=== PATIENT | female | born 1955 | race Caucasian/White ===

== ENCOUNTER → 2022-11-30 11:07 | Outpatient (CLI) | payer MEDICARE, SELFPAY ==
--- NOTE | ~2022-11-30 | MR_ITS ---
EXAMINATION: MR lower leg RT wo con DATE: 11/30/2022 12:11 INDICATION: Right lower leg pain. TECHNIQUE: Magnetic resonance imaging (MRI) of the right lower leg was performed without intravenous contrast. Sequences included axial, sagittal and coronal T1-weighted FSE and fluid sensitive FSE STIR . The contralateral left lower leg is included on the coronal images. COMPARISON: None. FINDINGS: Evaluation the joint space at the knees and ankles is limited by their position at the margins of the field of imaging. At least moderate, potentially severe osteoarthritis with scattered cortical irreg ularity and subarticular edema-like signal changes at the medial and lateral compartments of both kne es. Additional osteoarthritis with subarticular edema and cystlike changes at the right proximal tibi ofibular joint. Otherwise normal marrow signal. No reactive edema, fracture or pathologic marrow repl acing process. No periostitis. Small amount of fluid at the right pes anserinus bursa consistent with bursitis. No other abnormal fluid collections identified. Thickening of the proximal right tibialis posterior tendon near its insertion along the proximal tibiofibular syndesmosis suggesting scarring r elated to chronic partial tear. There is nonspecific mild increased fluid signal in the right gastroc nemius muscle and in the musculature of the anterior and lateral compartments. There is asymmetric mi ld fatty atrophy in the same locations as of the increased muscle signal at the contralateral left ca lf. IMPRESSION: 1. Right pes anserinus bursitis. 2. Nonspecific mild increased muscular signal at the right gastrocnemius muscle and in the musculatur e of the anterior and lateral compartments. There is a wide differential which includes denervation c hange, numerous inflammatory myopathies including myositis related to connective tissue diseases, rha bdomyolysis and trauma. Relatively symmetric distribution of some fatty atrophy in the contralateral left lower leg suggests a similar chronic more advanced etiology. 3. Thickening of the proximal tendon of the tibialis posterior suggesting scarring related to chronic partial tear. Reviewed, dictated and finalized at location B. IMPRESSION: 1. Right pes anserinus bursitis. 2. Nonspecific mild increased muscular signal at the right gastrocnemius muscle and in the musculature of the anterior and lateral compartments. There is a wi de differential which includes denervation change, numerous inflammatory myopat hies including myositis related to connective tissue diseases, rhabdomyolysis a nd trauma. Relatively symmetric distribution of some fatty atrophy in the contr alateral left lower leg suggests a similar chronic more advanced etiology. 3. Thickening of the proximal tendon of the tibialis posterior suggesting scarr ing related to chronic partial tear.
== END ==
PROVIDERS: PCP Family Medicine Sports Medicine; Visit Provider Family Medicine Sports Medicine
DX: M79.604 Pain in right leg (principal); S86.301A Unspecified injury of muscle(s) and tendon(s) of peroneal muscle group at lower leg level, right leg, initial encounter; X58.XXXA Exposure to other specified factors, initial encounter
CPT/HCPCS: 73718

== ENCOUNTER → 2023-02-11 12:38 | Outpatient (CLI) | payer MEDICARE, SELFPAY ==
--- NOTE | ~2023-02-11 | MR_ITS ---
EXAMINATION: MR lumbar spine wo con DATE: 02/11/2023 13:10 INDICATION: Lumbar herniated disc. TECHNIQUE: Magnetic resonance imaging (MRI) of the lumbar spine was performed without intravenous con trast. Sequences included sagittal T2-weighted FSE, sagittal T2-weighted FS FSE, sagittal T1-weighted FSE, and axial T2-weighted FSE. COMPARISON: None FINDINGS: There is 6 degrees dextrocurvature of thoracolumbar spine. There is 6 mm anterolisthesis of L4 on L5. Vertebral body heights are normal. There is mildly decreased disc height at L1-L2 and L4-L 5. There is interbody fusion at L5-S1. The distal spinal cord signal intensity is normal. The conus m edullaris is at L1. The following disc levels are specifically discussed: L1-L2: The disc is bulging. There is severe bilateral facet joint osteoarthritis. There is mild bilat eral neural foraminal stenosis. There is mild central canal stenosis. L2-L3: The disc is bulging. There is moderate bilateral facet joint osteoarthritis. There is mild keegan ateral neural foraminal stenosis. There is mild central canal stenosis. L3-L4: The disc is bulging. There is severe bilateral facet joint osteoarthritis. There is mild bilat eral neural foraminal stenosis. There is mild central canal stenosis. L4-L5: The disc is bulging with superimposed right subarticular zone protrusion with mass effect on t he right L5 nerve root in right lateral recess There is severe bilateral facet joint osteoarthritis. There is mild bilateral neural foraminal stenosis. There is mild central canal stenosis. There is sev ere stenosis of right lateral recess. L5-S1: The disc does not extend beyond the endplate margin. There is mild bilateral facet joint osteo arthritis. There is no neural foraminal stenosis. There is no central canal stenosis. IMPRESSION: 1. Protrusion at L4-L5 with mass effect on the right L5 nerve root. 2. Mild spondylosis at other levels. Reviewed, dictated and finalized at location A.
== END ==
DX: M51.26 Other intervertebral disc displacement, lumbar region (principal); M47.896 Other spondylosis, lumbar region
CPT/HCPCS: 72148

== ENCOUNTER 2025-03-19 14:42 | Outpatient (CLI) | payer MEDICARE, SELFPAY ==
--- NOTE | ~2025-03-19 | CT_ITS ---
EXAMINATION: CT_LERTCWO_CT DATE: 03/19/2025 15:55 INDICATION: Right knee osteoarthritis for preoperative evaluation TECHNIQUE: High resolution computed tomography (CT) of the right lower extremity from the hip through the ankle was performed without intravenous contrast. Additional sagittal and coronal reconstructions were performed. Automated exposure control and iterative reconstruction technique were employed. The dose- length product was 1932.38 mGy-cm. COMPARISON: Radiograph dated 03/05/2025 FINDINGS: Tricompartmental osteoarthritis at the right knee, severe at the medial and lateral compartments and at least moderate severity at the patellofemoral compartment. Likely secondary proximal 1 cm lateral subluxation of the tibial plateau relative to the femoral condyles. Large marginal osteophytes are present including extension across the intercondylar notch in the expected course of the anterior cruciate ligament consistent with likely chronic tear of the ligament. Small to moderate-sized right knee joint effusion. Large loose osteochondral body measuring 4.2 x 3.4 x 2.0 cm at the lateral gutter of the suprapatellar pouch. Additional moderate osteoarthritis at the proximal tibiofibular articulation. Additional mild polyarticular osteoarthritis at the right hip and multiple joints the right foot and ankle. Visualized portions of the pelvis is unremarkable with no evident free fluid. No pathologically enlarged right pelvic or inguinal lymphadenopathy. IMPRESSION: 1. Severe medial lateral compartment predominant tricompartmental osteoarthritis at the. 2. Osteophytes extending across the intercondylar notch and the course anterior cruciate ligament presumptive of chronic anterior cruciate ligament tear. 3. Small to moderate-sized right knee joint effusion large loose osteochondral body. Reviewed, dictated and finalized at location A. IMPRESSION: 1. Severe medial lateral compartment predominant tricompartmental osteoarthriti s at the. 2. Osteophytes extending across the intercondylar notch and the course anterior cruciate ligament presumptive of chronic anterior cruciate ligament tear. 3. Small to moderate-sized right knee joint effusion large loose osteochondral body.
--- NOTE | 2025-03-19 15:04 | ECG_ITS ---
Test Date: 2025-03-19 15:21:39 Measurements Intervals [place] Rate: 74 P: 49 MS: 139 QRS: -3 QRSD: 82 T: 8 QT: 367 QTc: 408 Interpretive Statements SINUS RHYTHM POSSIBLE LEFT ATRIAL ENLARGEMENT DELAYED PRECORDIAL R/S TRANSITION INFERIOR INFARCT, AGE INDETERMINATE BASELINE ARTIFACT- III, AVR, AVL, AVF, V3 ABNORMAL ECG No previous ECG available for comparison Electronically Signed On 03-19-2025 16:08:34 CDT by Uli Williamson D.O.
[2025-03-19 15:09] LABS: Hematocrit 44.9 % (37.0-47.0); Hemoglobin 14.0 g/dL (12.0-15.0)
[2025-03-19 15:23] LABS: Albumin Level 4.4 g/dL (3.5-5.1); Estimated Glomerular Filt Rate 59
--- OUTSIDE RECORDS SUMMARY | 2025-03-19 17:11 | XMS_ITS | Clinical Summary ---
Author Organization [facility] Medical Office Building [facility] Address [address] [place] [address] Care Team Providers Care Induction Furnace Operator Name Role Phone Unknown, Notinfile Primary Care Provider Unavail able Allergies No known active allergies Medications No known medications Active Problems No known active problems Medical History Medical History Date Comments Chronic knee pain Bilateral Sciatica of left side 1990s. tung e residual left leg weakness and altered sensation Social History Tobacco Use Types Packs/Day Years Used Date Smoking Tobacco: Never Tobacco Cessation:Counseling Given: Not Answered Personal Safety Answer Date Recorded Getting School Help Needed Not on file 05/18 Comments Unknown Sex and Gender Information Value Date Recorded Sex Assigned at Not on file Legal Sex Female 10:50 AM CDT Gender Identity Female 01/26/2023 8:17 PM CDT Sexual Orientation Not on file Obstetrics History Last Filed Vital Signs Vital Sign Reading Time Taken Comments Blood Pressure 129/84 11/27/2022 8:38 AM CDT Pulse 86 11/27/2022 8:38 AM CDT Temperature - - Respiratory Rate - - Oxygen Saturation - - Inhaled Oxygen Concentration - - Weight 91 kg (200 lb 9.6 oz) 11/27/2022 8:38 AM CDT Height 175.3 cm (5' 9) 11/27/2022 8:38 AM CDT Body Mass Index 29.62 11/27/2022 8:38 AM CDT Plan of Treatment Health Maintenance Due Date Last Done Comments Breast Cancer Screening-Mammogram 1955 Colon Cancer Screening-Colonoscopy 1955 Depression Screening 1955 Fall Risk Assessment 1955 Hepatitis C Screening 1955 Osteoporosis Screening-Bone Density Scan 1955 DTaP/Tdap/Td Vaccine (1 - Tdap) 1968 Hepatitis B Screening 1975 Pneumococcal vaccine 65+ (1 of 1 - PCV) 2007 Zoster Vaccine (1 of 2) 2007 Well Visit 65+ 2022 Covid-19 Vaccine ( season) 2025 06/17/2021, 08/18/2020, 07/28/2020 Influenza Vaccine (#1) 2025 Insurance MEDICARE [facility] MEDICARE [employer] Care Teams Induction Furnace Operator Relationship Specialty Start Date End Date Unknown, Notinfile PCP - General 10/14/22
--- OUTSIDE RECORDS SUMMARY | 2025-03-19 17:11 | XMS_ITS | Clinical Summary ---
Author Organization [facility] Address [address] [place] [address] Care Team Providers Care Field Rep Name Role Phone None, Provider MD Primary Care Provider Unavaila ble Social History Tobacco Use Types Packs/Day Years Used Date Smoking Tobacco: Never Assessed Comments Unknown Sex and Gender Information Value Date Recorded Sex Assigned at Not on file Legal Sex Female 8:08 PM CDT Gender Identity Not on file Sexual Orientation Not on file Plan of Treatment Health Maintenance Due Date Last Done Comments Colorectal Cancer Screening Colonoscopy (10 Years) 1955 Hepatitis C 1975 DTaP, Tdap and Td Vaccines ( 1 - Tdap) 1976 Mammogram Screening 1997 Pneumococcal Vaccine: 50+ Years (1 of 1 - PCV) 2007 Zoster Vaccines (1 of 2) 2007 Dexa Scan (General) 2022 COVID-19 Vaccine (4 - 2024-2 6 season) 2025 06/17/2021, 08/18/2020, 07/28/2020 Influenza Adult (#1) 2025 RSV Immunization or 60+ Years (1 - 1-dose 75+ series) 2032 Hepatitis A Vaccines Aged Out No long er eligible based on patient's age to complete this topic Meningococcal B Vaccine Aged Out No l onger eligible based on patient's age to complete this topic Meningococcal Vaccine Aged Out No maurice jailyn eligible based on patient's age to complete this topic RSV Immunizations Under 20 Months Aged Out No longer eligible b ased on patient's age to complete this topic Insurance [employer] Care Teams Field Rep Relationship Specialty Start Date End Date None, Provider, PCP - General 08/30/21
== END 2025-03-19 14:43 | disposition home or self-care (01) ==
PROVIDERS: PCP Nurse Practitioner Family; Visit Provider Orthopaedic Surgery
DX: M17.0 Bilateral primary osteoarthritis of knee (principal); Z01.818 Encounter for other preprocedural examination
CPT/HCPCS: 36415; 73700; 82040; 82565; 85014; 85018; 93005

== ENCOUNTER 2025-04-11 08:51 | Outpatient (CLI) | payer MEDICARE, SELFPAY ==
--- NOTE | ~2025-04-11 | DEXA_ITS ---
Bone Density Report Name: ALYSSA MCCRAY Age: 69 Sex: Female Ethnicity: White Date of : 1955 Indication: postmenopausal; screening for osteoporosis; Referring Provider: NIMO GREENWOOD Study: Bone densitometry was performed. Exam Date: April 11, 2025 Accession number: [id number] Bone Density: Region BMD T-score Z-score Classification AP Spine(L1, L2) 0.834 -1.3 0.5 Osteopenia Femoral Neck (Left) 0.672 -1.6 0.1 Osteopenia Total Hip (Left) 0.880 -0.5 0.9 Normal Femoral Neck (Right) 0.676 -1.6 0.1 Osteopenia Total Hip (Right) 0.842 -0.8 0.6 Normal Total Hip Mean 0.861 -0.7 0.8 Normal World Health Organization criteria for BMD impression classify patients as: Normal (T-score at or above -1.0), Osteopenia (T-score between -1.0 and -2.5), or Osteoporosis (T-score at or below -2.5). 10-year Fracture Risk(1): Major Osteoporotic Fracture 9.3% Hip Fracture 1.1% Reported Risk Factors: [place] (), Neck BMD=0.672, BMI=30.3 (1) FRAX(R) Version 3.08. Fracture probability calculated for an untreated patient. Fracture probability may be lower if the patient has received treatment. Clinical Information Provided by Patient: Patient maximum height was 68 Onset of menses at age 16 Number of children 1 Impression: The patient has low bone mass, based on the Left Femoral Neck T-score. The patient has an estimated ten-year risk of hip fracture of 1.1% and an estimated ten-year risk of major fracture of 9.3%, based on the WHO FRAX algorithm. Discussion: BONE DENSITY IS LOW AT ONE OR MORE SKELETAL SITES. This patient's lowest T-score is low at one or more skeletal sites. It meets the World Health Organization's (WHO) criteria for ?low bone mass? (T-score between -1.0 and -2.5). The patient's 10-year risk of fracture as calculated by FRAX is less than the threshold where pharmacological therapy is recommended by the National Osteoporosis Foundation (NOF). However, all treatment decisions require clinical judgment and consideration of individual patient factors, including patient preferences, comorbidities, previous drug use, risk factors not captured in the FRAX model (e.g., frailty, falls, vitamin D deficiency, increased bone turnover, interval significant decline in bone density) and possible under or overestimation of fracture risk by FRAX. The patient should follow a healthful lifestyle (good nutrition with adequate calcium and vitamin D, and appropriate weight-bearing exercise). Follow-Up: Consider repeating this study in 2 to 3 years to reassess this patient's status, or sooner if there is some new clinical indication. Reported by: TIFFANIE on 04/11/2025 9:40:00 AM. Reviewed, dictated and finalized at location A.
--- NOTE | ~2025-04-11 | MM_ITS ---
EXAMINATION: MM screening rajni BI w dorinda HISTORY: Screening TECHNIQUE: Craniocaudal and mediolateral oblique 3-D tomosynthesis images were obtained and synthetic 2-D images were generated. CAD analysis was submitted and interpreted. COMPARISON: No prior mammogram is available for comparison at this institution. BREAST PARENCHYMAL COMPOSITION: Not dense: There are scattered areas of fibroglandular density. FINDINGS: There are asymmetries centered in the upper outer quadrant of the right breast with possible architectural distortion. There is a cluster of punctate calcifications in the lower outer quadrant of the right breast, posterior third. There is a mass in the upper outer quadrant of the left breast, middle third with associated coarse calcifications. IMPRESSION: 1. Right breast asymmetries with possible architectural distortion. Clustered right breast calcifications. Left breast mass. 2. Additional mammographic views and possible breast ultrasound are recommended. BI-RADS Category 0: Incomplete: Needs additional imaging evaluation. Reviewed, dictated and finalized at location B. CAB DISPATCHER IMPRESSION: 1. Right breast asymmetries with possible architectural distortion. Clustered r ight breast calcifications. Left breast mass. 2. Additional mammographic views and possible breast ultrasound are recommended . BI-RADS Category 0: Incomplete: Needs additional imaging evaluation.
--- OUTSIDE RECORDS SUMMARY | 2025-04-11 09:22 | XMS_ITS | Clinical Summary ---
Author Organization [facility] Address [address] [place] [address] Care Team Providers Care Tag Clerk Name Role Phone None, Provider MD Primary [...] complete this topic Insurance [employer] Care Teams Tag Clerk Relationship Specialty Start Date End Date None, Provider, PCP - General 08/30/21
--- OUTSIDE RECORDS SUMMARY | 2025-04-11 09:22 | XMS_ITS | Clinical Summary ---
Author Organization [facility] Medical Office Building [address] Address [address] [place] [address] Care Team Providers Care Case Packer Name Role Phone Unknown, Notinfile Primary Care [...] PM CDT Sexual Orientation Not on file Last Filed Vital Signs Vital Sign Reading [...] 07/28/2020 Influenza Vaccine (#1) 2025 Insurance MEDICARE [facility] MEDICARE [employer] Care Teams Case Packer Relationship Specialty Start Date End Date Unknown, Notinfile PCP - General 10/14/22
== END 2025-04-11 08:52 | disposition home or self-care (01) ==
LOC: ANHFOHIMG 08:52
PROVIDERS: PCP Nurse Practitioner Family; Visit Provider Nurse Practitioner Family
DX: Z12.31 Encounter for screening mammogram for malignant neoplasm of breast (principal); R92.8 Other abnormal and inconclusive findings on diagnostic imaging of breast; M85.89 Other specified disorders of bone density and structure, multiple sites; Z78.0 Asymptomatic menopausal state; Z13.820 Encounter for screening for osteoporosis
CPT/HCPCS: 77063; 77067; 77080

== ENCOUNTER 2025-04-12 09:30 | Outpatient (CLI) | payer MEDICARE, SELFPAY ==
--- NOTE | ~2025-04-12 | NM_ITS ---
EXAMINATION: NM tien stress w perfusion DATE: 04/12/2025 11:23 INDICATION: Abnormal EKG TECHNIQUE: Rest images were obtained following intravenous administration of 9 mCi Tc99m tetrofosmin (Myoview). The patient was infused intravenously with Lexiscan (Regadenoson). Then, 29 mCi Tc99m tetrofosmin (Myoview) was administered intravenously, and stress images were obtained. Data was reconstru cted into short axis and horizontal and vertical long axis SPECT images. Gated SPECT images were also obtained. COMPARISON: None. FINDINGS: There is no definite reversible or fixed perfusion abnormality to suggest ischemia or infarction. There is normal left ventricular chamber size, wall motion and ejection fraction. Left ventricular ejection fraction measures >70%. IMPRESSION: 1. Normal myocardial perfusion at rest and during stress. 2. Left ventricular ejection fraction measuring >70%. Reviewed, dictated and finalized at location A. TRICAL EQUIPMENT TECHNICIAN
--- NOTE | 2025-04-12 10:01 | EST_ITS ---
Patient Info Name: Tena Govea Age: 69 years : 1955 Gender: Female Ht: 67 in Wt: 199 lbs BSA: 2.09 m2 HR: 73 bpm BP: 120 / 86 mmHg Exam Date: 04/12/2025 10:01 AM Patient Status: O Admit Date: 04/12/2025 Exam Type: CA stress tien w NM A regadenoson stress test was performed. Staff Referring Physician: Katie Gage Attending Provider: Katie Gage Exercise Technologist: Tara Siegel Exercise Physician: Uli Williamson DO Summary 1. 1. Negative lexiscan stress test for ischemic ST changes by ECG criteria. 2. 2. Stable hemodynamics throughout the test. 3. 3. Nuclear scan to follow and will be reported separately. Please correlate with it. 4. 4. Patient informed of the above results. Protocol: Lexiscan Stress ECG Details Stage: REST Duration (min): 1 min : 3 sec HR (bpm): 72 SBP (mmHg): 120 DBP (mmHg): 86 Stage: REST Duration (min): 10 min : 52 sec HR (bpm): 77 SBP (mmHg): 120 DBP (mmHg): 86 Stage: STAGE 1 Duration (min): 1 min : 0 sec HR (bpm): 101 SBP (mmHg): 145 DBP (mmHg): 75 Stage: RECOVERY Duration (min): 1 min : 0 sec HR (bpm): 106 SBP (mmHg): 145 DBP (mmHg): 75 Stage: RECOVERY Duration (min): 2 min : 0 sec HR (bpm): 102 SBP (mmHg): 145 DBP (mmHg): 75 Stage: RECOVERY Duration (min): 3 min : 0 sec HR (bpm): 94 SBP (mmHg): 125 DBP (mmHg): 77 Stage: RECOVERY Duration (min): 3 min : 36 sec HR (bpm): 94 SBP (mmHg): 125 DBP (mmHg): 77 Rest HR: 77 bpm Peak HR: 111 bpm Rest Sys BP: 120 mmHg Peak Sys BP: 145 mmHg Max Pred HR: 153 bpm % Max Pred HR: 73 % Target HR: 130 bpm Max RPP: 16,095 bpm*mmHg Termination Reason: Completed protocol Cardiac Symptoms: Upset stomach Total Time: 1 min : 0 sec Rest Nuñez BP: 86 mmHg Peak Nuñez BP: 75 mmHg Total Dose: 0.4 mg Resting ECG Sinus rhythm. Stress ECG No ST changes. Arrhythmias None. Report Signatures
--- OUTSIDE RECORDS SUMMARY | 2025-04-12 10:07 | XMS_ITS | Clinical Summary ---
Author Organization [facility] Address [address] [place] [id number] Care Team Providers Care Fitness Coach Name Role Phone None, Provider MD Primary [...] complete this topic Insurance [employer] Care Teams Fitness Coach Relationship Specialty Start Date End Date None, Provider, PCP - General 08/30/21
--- OUTSIDE RECORDS SUMMARY | 2025-04-12 10:07 | XMS_ITS | Clinical Summary ---
Author Organization [facility] Medical Office Building B Address [address] [place] [address] Care Team Providers Care Flight Engineer Performance Qualified Name Role Phone Unknown, Notinfile Primary Care [...] 07/28/2020 Influenza Vaccine (#1) 2025 Insurance MEDICARE [facility] MEDICARE A[employer] Care Teams Flight Engineer Performance Qualified Relationship Specialty Start Date End Date Unknown, Notinfile PCP - General 10/14/22
== END 2025-04-12 09:31 | disposition home or self-care (01) ==
PROVIDERS: PCP Nurse Practitioner Family; Visit Provider Nurse Practitioner Family
DX: R94.31 Abnormal electrocardiogram [ECG] [EKG] (principal)
CPT/HCPCS: 78452; 93017; A9502; J2785